=== PATIENT | male | born 1990 | race Hispanic/Latino ===

== ENCOUNTER 2024-04-29 05:48 | Emergency (ER) | payer OTHER ==
[~2024-04-29] VITALS: Ht 170.2 cm; Wt 86.2 kg
[2024-04-29 05:56] VITALS: PULSE 102; RESP 17; TEMP 98.8; O2SAT 99
== END 2024-04-29 08:33 | disposition home or self-care (01) ==
LOC: ER 05:56
DX: S93.491A Sprain of other ligament of right ankle, initial encounter (principal); V86.49XA Person injured while boarding or alighting from other special all-terrain or other off-road motor vehicle, initial encounter; Y92.89 Other specified places as the place of occurrence of the external cause; R73.03 Prediabetes; M10.9 Gout, unspecified
CPT/HCPCS: 99283

== ENCOUNTER 2024-05-04 07:39 | Emergency (ER) | payer OTHER ==
[~2024-05-04] VITALS: Ht 170.2 cm; Wt 86.2 kg
[2024-05-04 07:42] VITALS: TEMP 97.2
[2024-05-04] MEDS: HYDROCODONE/APAP 7.5MG-325MG 1 EA TAB PO ONE (08:24)
[2024-05-04 08:27] VITALS: PULSE 105; RESP 18
[2024-05-04] MEDS ORDERED: ULTRAM 50MG50 MG PO (09:12)
[2024-05-04 09:41] VITALS: BP 132/72; PULSE 89; RESP 18; TEMP 97.4; O2SAT 99
== END 2024-05-04 09:44 | disposition home or self-care (01) ==
LOC: ER 07:53
DX: M25.561 Pain in right knee (principal); S93.401A Sprain of unspecified ligament of right ankle, initial encounter; W18.30XA Fall on same level, unspecified, initial encounter; M10.9 Gout, unspecified; Z91.81 History of falling
CPT/HCPCS: 99283